=== PATIENT | female | born 1955 | race Caucasian/White ===

== ENCOUNTER 2021-08-12 08:48 | Inpatient (IN) ==
[2021-08-12] MEDS ORDERED: SODIUM CHLORIDE 0.9% 1,000 ML IV STA (09:30)
[2021-08-12 09:43] LABS: Basophils # 0.1 10*3/uL (0.0-0.2); Basophils % 0.4 % (0.0-0.8); Eosinophils # 0.1 10*3/uL (0.0-0.87); Eosinophils % 0.7 % (0.00-10.9); Hematocrit 43.7 VOL% (35.7-47.0); Hemoglobin 14.2 GM/DL (12.0-16.0); Immature Granulocytes % 0.6 %; Immature Granulocytes Absolute 0.08 #; Lymphocytes % 14.7 % (21.3-54.2); Mean Corpuscular HGB Conc 32.5 GM/DL (32-36); Mean Corpuscular Volume 93.4 FL (87-102); Mean Platelet Volume 10.8 FL (9.6-12.0); Monocytes % 9.6 % (1.7-12.7); Platelet Count 329 T/CUMM (130-400); Red Blood Count 4.68 MC/CUMM (3.8-5.5); Red Cell Distribution Width 12.8 % (9.3-17.3); White Blood Count 13.7 T/CUMM (4-12)
[2021-08-12 10:17] LABS: Albumin 3.9 G/DL (3.4-5.0); Bilirubin,Total 0.6 MG/DL (0.20-1.00); Calcium 9.4 MG/DL (8.5-10.1); Potassium 3.7 MMOL/L (3.5-5.1)
[2021-08-12] MEDS ORDERED: ONDANSETRON 4 MG/2 ML VIAL IV PRN (12:17)
[2021-08-12] MEDS ORDERED: PIPERACILLIN/TAZOBACTAM 3,375 MG in SODIUM CHLORIDE 0.9% 100 ML IV STA (12:17)
[2021-08-12] MEDS ORDERED: HYDROmorphone 2 MG/1 ML VIAL IV PRN (12:17)
[2021-08-12] MEDS ORDERED: ACETAMINOPHEN 325 MG TABLET PO PRN (12:17)
[2021-08-12] MEDS: SODIUM CHLORIDE 0.45% 1,000 ML IV SCH (12:41)
[2021-08-12] MEDS: PIPERACILLIN/TAZOBACTAM 3,375 MG in SODIUM CHLORIDE 0.9% 100 ML IV SCH ×2 (13:14→20:59)
[2021-08-12] MEDS ORDERED: INFLUENZA VIRUS VACCINE 0.5 ML SYRINGE IM ONE (16:33)
[2021-08-12] MEDS: DOCUSATE SODIUM 100 MG CAPSULE PO SCH (20:59)
[2021-08-13] MEDS: SODIUM CHLORIDE 0.45% 1,000 ML IV SCH ×2 (01:31→21:10)
[2021-08-13 05:41] LABS: Basophils # 0.1 10*3/uL (0.0-0.2); Basophils % 0.7 % (0.0-0.8); Eosinophils # 0.3 10*3/uL (0.0-0.87); Eosinophils % 3.1 % (0.00-10.9); Hematocrit 39.6 VOL% (35.7-47.0); Hemoglobin 12.7 GM/DL (12.0-16.0); Immature Granulocytes % 0.5 %; Immature Granulocytes Absolute 0.05 #; Lymphocytes # 2.9 10*3/uL (1.4-4.0); Lymphocytes % 26.9 % (21.3-54.2); Mean Corpuscular HGB Conc 32.1 GM/DL (32-36); Mean Corpuscular Volume 93.8 FL (87-102); Mean Platelet Volume 11.1 FL (9.6-12.0); Monocytes % 9.4 % (1.7-12.7); Neutrophils % 59.4 % (38.7-73.9); Platelet Count 288 T/CUMM (130-400); Red Blood Count 4.22 MC/CUMM (3.8-5.5); Red Cell Distribution Width 13.1 % (9.3-17.3); White Blood Count 10.8 T/CUMM (4-12)
[2021-08-13 06:06] LABS: Calcium 8.6 MG/DL (8.5-10.1); Osmolality,Calculated 275.4 MOS/KG (273-304); Potassium 3.4 MMOL/L (3.5-5.1)
[2021-08-13] MEDS: PIPERACILLIN/TAZOBACTAM 3,375 MG in SODIUM CHLORIDE 0.9% 100 ML IV SCH ×2 (06:15→15:37)
[2021-08-13 06:36] LABS: Total Protein 6.7 G/DL (6.4-8.2)
[2021-08-13] MEDS ORDERED: POTASSIUM CHLORIDE RIDER 10 MEQ/100 ML PREMIX IV ONE (10:48)
[2021-08-13] MEDS: PANTOPRAZOLE 40 MG TABLET PO SCH (10:55)
[2021-08-13] MEDS: LEVOTHYROXINE 75 MCG TABLET PO SCH (10:55)
[2021-08-13] MEDS: SIMVASTATIN 20 MG TABLET PO SCH (10:55)
[2021-08-13] MEDS: DOCUSATE SODIUM 100 MG CAPSULE PO SCH ×2 (10:56→21:10)
[2021-08-14] MEDS: PIPERACILLIN/TAZOBACTAM 3,375 MG in SODIUM CHLORIDE 0.9% 100 ML IV SCH ×2 (00:31→08:34)
[2021-08-14] MEDS: SIMVASTATIN 20 MG TABLET PO SCH (08:35)
[2021-08-14] MEDS: PANTOPRAZOLE 40 MG TABLET PO SCH (08:35)
[2021-08-14] MEDS: DOCUSATE SODIUM 100 MG CAPSULE PO SCH (08:36)
[2021-08-14] MEDS: LEVOTHYROXINE 75 MCG TABLET PO SCH (08:38)
[2021-08-14 11:24] VITALS: BP 122/60
[2021-08-15 06:35] LABS: Total Protein (Chem) 6.7 G/DL (6.4-8.3)
[2021-08-15 09:08] LABS: Albumin (SPE) 4.4 G/DL (3.2-5.3); Albumin (SPE) Rel % 65.4 %; Alpha 1 (SPE) 0.2 G/DL (0.1-0.4); Alpha 1 (SPE) Rel % 2.4 %; Alpha 2 (SPE) 0.8 G/DL (0.4-1.0); Alpha 2 (SPE) Rel % 11.3 %; Beta (SPE) 0.7 G/DL (0.5-1.1); Gamma (SPE) 0.7 G/DL (0.7-1.7); Gamma (SPE) Rel % 9.9 %
[2021-09-05] MEDS ORDERED: BISACODYL 5 MG TABLET PO ONE (15:00)
[2021-09-05] MEDS ORDERED: POLYETHYLENE GLYCOL POWDER 255 GM BOTTLE PO ONE (17:00)
[2021-09-06] MEDS ORDERED: POLYETHYLENE GLYCOL POWDER 255 GM BOTTLE PO ONE (05:00)
== END 2021-08-14 16:11 | disposition home or self-care (01) | DRG 394 ==
LOC: N.ED 08:48 → N.EDINP 12:17 → N.3E 15:43
PROVIDERS: ADMIT Family Medicine; ATTEND Family Medicine